=== PATIENT | female | born 1985 | race Caucasian/White ===

== ENCOUNTER → 2020-11-22 15:05 | Outpatient (CLI) | payer OTHER, SELFPAY ==
[2020-11-22 15:44] LABS: COVID19 -Nasal RAPID Negative (Negative)
== END ==
PROVIDERS: PCP Family Medicine; Visit Provider Specialist
DX: Z20.822 Contact with and (suspected) exposure to COVID-19 (principal)
CPT/HCPCS: 87635

== ENCOUNTER 2020-11-23 12:07 | Day surgery (SDC) | payer OTHER, SELFPAY ==
[2020-11-23] VITALS (7 sets, daily range): BP systolic 98–110; BP diastolic 42–71; PULSE 76–91; RESP 11–21; TEMP 36.1–36.7; O2SAT 94–100; BMI 38.5
[2020-11-23] MEDS: LACTATED RINGERS 1,000 ML 100 ML IV (13:17)
--- NOTE | 2020-11-23 13:22 | PM.PREOP ---
Pre-operative Note COVID-19 COVID-19 status: Negative Result date/Date tested (Pos, Neg/Pending): 11/22/20 Interval Note History & Physical reviewed/Exam performed by Physician: Yes Changes to H&P: No
--- NOTE | 2020-11-23 13:54 | P.OP_ITS ---
Operative Date/Time/Diagnoses Date of procedure: 11/23/20 Time of procedure: 13:54 Pre-op diagnosis: retained IUD with wishing to have a new IUD placed Post-op diagnosis: same Procedure & Clinicians Procedure: Dilation of cervix, removal of IUD with polyp forceps, placement of Mirena IUD Same procedure as scheduled: Yes Indications: retained IUD with wishing to have new IUD placed Surgeon: Zeina De Click Yes if Unassisted: Yes Anesthesia Type: General Operative Notes Findings: IUD in uterus easily removed once the cervix was dilated, replacement of Mirena IUD Closure Type: not applicable Specimen(s): none sent Estimated Blood Loss (mL): 2 Blood products transfused: none Procedure in detail: Patient was brought to the operating room where she underwent general anesthesia. She was placed in low Yellofin stirrups and prepped and draped in usual sterile fashion. Warming was with blankets, pulsatile stockings were in place and functional, and no antibiotics were indicated. A check system was reviewed with the staff in the room prior to beginning the case. A speculum was placed in the vagina and the cervix grasped with a single-tooth tenaculum. The cervix was dilated to a # 6 Hegar dilator. Polyp forceps were placed and the IUD removed with out difficulty. The new Mirena IUD was placed after sounding the uterus to the correct depth of 9 cm. The strings were cut long, 6 cm, per patient request as both her IUDs had st rings not visible. Patient went to recovery room in good condition. Counts of instruments and sponges were correct. Complications: none Post-operative Condition: stable Disposition: same day surgery Plan for aftercare: home when awake and stable
--- NOTE | 2020-11-23 14:07 | SUR.OPER ---
Lithotomy on padded OR bed, head on pillow, arms secured on padded arm boards at <90 degrees abduction. Legs secured in padded yellow fins stirrups.
[2020-11-23] MEDS: OXYCODONE IR 5 MG TABLET PO ×2 (14:17→14:39)
--- NOTE | 2020-11-23 14:22 | SUR.PHASEI ---
Pt wiped [place] area, small amount of bloody drainage, nothing pad, medicated with percolone after applesauce tolerated.
--- NOTE | 2020-11-23 14:30 | SUR.PHASEI ---
To OPD, stable, belly soft no nausea.
== END 2020-11-23 15:10 | disposition home or self-care (01) ==
PROVIDERS: PCP Family Medicine; Referring Provider Specialist; Visit Provider Specialist
PROC: 0UDB8ZZ Extraction of Endometrium, Via Natural or Artificial Opening Endoscopic (ICD-10-PCS; CPT 58558; principal; 2020-11-23 13:30)
DX: Z30.433 Encounter for removal and reinsertion of intrauterine contraceptive device (principal)
CPT/HCPCS: 58301; 58300; J1885; J2405; J2704; J3010; J7298